=== PATIENT | female | born 1975 | race Caucasian/White ===

== ENCOUNTER 2018-01-10 01:25 | Emergency (ER) | payer OTHER ==
[~2018-01-10] VITALS: Ht 165.1 cm; Wt 88.5 kg
[2018-01-10] MEDS ORDERED: BUPROPION HCL300 MG PO (01:31)
[2018-01-10] MEDS ORDERED: PRISTIQ100 MG PO (01:32)
[2018-01-10] MEDS ORDERED: HYDROXYZINE PAM25 M1 PO (01:32)
[2018-01-10 02:15] LABS: BASO # 0.1 10*3/uL (0.0-0.1); BASO % 0.4 % (0.0-1.0); EOS # 0.5 10*3/uL (0.0-0.4); EOS % 3.9 % (1.0-4.0); HEMATOCRIT 36.1 % (37.0-47.0); HEMOGLOBIN 12.2 g/dl (12.0-16.0); LYMPH # 4.4 10*3/uL (1.3-4.4); LYMPH % 36.6 % (27.0-41.0); MEAN CELL VOLUME 89.1 fl (81.0-99.0); MEAN CORPUSCULAR HGB 30.1 pg (27.0-31.0); MEAN CORPUSCULAR HGB CONC 33.8 g/dl (33.0-37.0); MEAN PLATELET VOLUME 9.6 fl (9.6-12.3); MONO # 0.9 10*3/uL (0.1-1.0); MONO % 7.7 % (3.0-9.0); NEUT % 50.7 % (47.0-73.0); PLATELET COUNT AUTOMATED 307 10*3/uL (130-400); RED BLOOD COUNT 4.05 10*6/uL (4.10-5.10); RED CELL DISTRI WIDTH 13.1 % (0-14.5); WHITE BLOOD COUNT 11.9 10*3/uL (4.8-10.8)
[2018-01-10 02:21] LABS: BILIRUBIN NEGATIVE (NEGATIVE); BLOOD NEGATIVE (NEGATIVE); CLARITY SL CLOUDY (CLEAR); COLOR YELLOW (YELLOW); GLUCOSE NEGATIVE (NEGATIVE); KETONE NEGATIVE (NEGATIVE); LEUKO ESTERASE NEGATIVE (NEGATIVE); NITRITE NEGATIVE (NEGATIVE); PH 5.5 (5.0-9.0); SPECIFIC GRAVITY 1.025 (1.005-1.030); UROBILINOGEN 0.2 E.U./dl (0.2-1.0)
[2018-01-10 02:29] LABS: ALBUMIN 3.4 gm/dl (3.1-4.5); ALKALINE PHOSPHATASE 111 U/L (45-117); BUN 7 mg/dl (7-24); CHLORIDE 105 mmol/L (98-107); CREATININE 0.89 mg/dL (0.55-1.02); LIPASE 172 U/L (73-393); POTASSIUM 3.5 mmol/L (3.5-5.1); SGOT/AST 13 IU/L (3-35); SGPT/ALT 41 U/L (12-78); SODIUM 141 mmol/L (136-145); TOTAL PROTEIN 6.9 gm/dL (6.4-8.2)
[2018-01-10 02:33] LABS: EPITHELIAL CELLS 15-20
[2018-01-10 02:34] LABS: BACTERIA TRACE; WBC 0-2 wbc/hpf (0-5)
[2018-01-10] MEDS ORDERED: NAPROSYN500 MG PO (02:56)
[2018-01-10] MEDS ORDERED: CYCLOBENZAPRINE10 MG PO (02:56)
== END 2018-01-10 03:11 | disposition home or self-care (01) ==
LOC: ED 01:25
PROVIDERS: Student in an Organized Health Care Education/Training Program
DX: R10.9 Unspecified abdominal pain (principal); R11.0 Nausea; F17.200 Nicotine dependence, unspecified, uncomplicated; Z90.49 Acquired absence of other specified parts of digestive tract; Z90.710 Acquired absence of both cervix and uterus; Z79.899 Other long term (current) drug therapy

== ENCOUNTER 2018-07-05 02:28 | Emergency (ER) | payer OTHER ==
[~2018-07-05] VITALS: Ht 165.1 cm; Wt 95.3 kg
[~2018-07-05 02:28] MED LIST: BUPROPION HCL300 MG PO; CYCLOBENZAPRINE10 MG PO; HYDROXYZINE PAM25 M1 PO; NAPROSYN500 MG PO; PRISTIQ100 MG PO
[2018-07-05] MEDS ORDERED: IBU800 MG PO ×2 (02:50→02:59)
[2018-07-05] MEDS ORDERED: PREDNISONE20 M1 PO (02:50)
== END 2018-07-05 03:22 | disposition home or self-care (01) ==
LOC: ED 02:28
DX: M72.2 Plantar fascial fibromatosis (principal); Q79.59 Other congenital malformations of abdominal wall; Z02.79 Encounter for issue of other medical certificate; Z79.899 Other long term (current) drug therapy

== ENCOUNTER → 2022-05-24 | Outpatient (CLI) | payer BC ==
[~2022-05-24] MED LIST changes: +IBU800 MG PO; +PREDNISONE20 M1 PO
== END | disposition home or self-care (01) ==
LOC: US 11:00
PROVIDERS: ATTEND Family Medicine
DX: M79.605 Pain in left leg (principal)